=== PATIENT | female | born 1940 | race Caucasian/White ===

== ENCOUNTER 2017-07-21 14:59 | Inpatient (IN) | payer OTHER ==
[~2017-07-21] VITALS: Ht 149.9 cm; Wt 68.6 kg
[2017-07-21 15:51] VITALS: BP 147/75; PULSE 76; TEMP 37.2; O2SAT 96
[2017-07-21] MEDS ORDERED: ACETAMINOPHEN 325 MG TAB PO PRN (16:15)
[2017-07-21] MEDS ORDERED: ONDANSETRON INJ 2 MG/ML 2 ML VIAL IV PRN (16:15)
[2017-07-21 16:17] VITALS: BP 147/75; PULSE 76; TEMP 37.2; O2SAT 96; Ht 149.9 cm; Wt 68.6 kg
[2017-07-21] MEDS ORDERED: PATIENT'S ALLERGY INFO NEEDS ENTERED SCH (16:30)
[2017-07-21] MEDS ORDERED: MULT-506 PO (16:41)
[2017-07-21] MEDS ORDERED: AMOX1TAB42 PO (16:41)
[2017-07-21] MEDS ORDERED: SIMV40TA4 PO (16:41)
[2017-07-21] MEDS ORDERED: LEVO125T4 PO (16:41)
[2017-07-21] MEDS ORDERED: CALC500C70 PO (16:41)
[2017-07-21 16:53] LABS: BASO % 0.3 %; BASO ABS # 0.03 K/uL (0-0.2); COMPLETE YES; EOS % 3.1 %; HEMATOCRIT 41.2 % (37-47); IG% 0.3 %; LYMPH % 9.7 %; LYMPH ABS # 1.07 K/uL (1.2-3.4); MEAN CELL VOLUME 89.2 fL (80-100); MEAN CORPUSCULAR HEMOGLOBIN 30.1 pg (25-34); MEAN CORPUSCULAR HGB CONC 33.7 g/dl (32-36); MEAN PLATELET VOLUME 10.9 fL (7.4-10.4); MONO % 6.5 %; NEUT % 80.1 %; PLATELET COUNT 211 K/uL (130-400); RED BLOOD COUNT 4.62 M/uL (4.2-5.4)
[2017-07-21 17:14] LABS: BUN/CREATININE RATIO 18.4 (10-20); C-REACTIVE PROTEIN 0.66 mg/dl (0-0.29); CALCIUM 9.2 mg/dl (8.5-10.1); CREATININE 0.88 mg/dl (0.60-1.20); POTASSIUM 4.1 mmol/L (3.5-5.1)
[2017-07-21 17:17] LABS: ALB/GLOB RATIO 1.1 (0.9-2)
[2017-07-21 17:53] LABS: PROTHROMBIN TIME (PATIENT) 11.1 SECONDS (9.0-12.0)
[2017-07-21] MEDS: CIPROFLOXACIN / D5W 400 MG in PREMIXED IN D5W 200 ML IV SCH (17:55)
[2017-07-21] MEDS: METRONIDAZOLE / NSS 500 MG in PREMIXED NSS 100 ML IV SCH (17:55)
--- NOTE | 2017-07-21 17:55 | History and Physical ---
History & Physical Date & Time of Service: Jul 21, 2017 ~ 16:15 Chief Complaint: Right Forearm Infection Primary Care Physician: Hafsa Gill PA-C History of Present Illness 76 year old female who presents as a direct admission for right forearm cellulitis from Dr. Mahajan's office. Patient suffered a dog bite 3 days ago. She was seen at [facility] ED and had 3 stitches placed and patient was also started on Augmentin. She started to developed worsening redness and swelling and presented back to the ED yesterday. Stitches were removed however patient signed out AMA before receiving IV antibiotics. Patient reports that since yesterday redness and swelling continues to worsen. She reports a small amount of bloody drainage. Arm is not painful. Sensation is intact to the right hand. She denies fever and chills. No chest pain, palpitations, or shortness of breath. She denies lightheadedness, dizziness, diaphoresis, or syncopal events. No abdominal pain, nausea, vomiting, or diarrhea. She denies any urinary symptoms. At the time of my exam, patient is resting in a chair in no acute distress. Past Medical/Surgical History Medical Problems: (1) HLD (hyperlipidemia) Status: Chronic (2) Hypothyroidism Status: Chronic Family History Diabetes mellitus MOTHER Social History Smoking Status: Never Smoker Alcohol Use: none Immunizations History of Influenza Vaccine: Yes Influenza Vaccine Date: Dec 17, 2015 History of Tetanus Vaccine?: Yes Tetanus Immunization Date: Jul 19, 2017 History of Pneumococcal: Yes Pneumococcal Date: Jul 09, 2016 Allergies Coded Allergies: Erythromycin (Verified Allergy, Unknown, RASH, 07/21/17) Pt states she has not had this medication for >15 years Penicillins (Verified Allergy, Unknown, RASH, 07/21/17) per pt report, pt states she has not had this medication for > 15 years Pseudoephedrine (Verified Allergy, Unknown, RASH, 07/21/17) Pt states that she has not had this med for > 15 years Triprolidine (Verified Allergy, Unknown, RASH, 07/21/17) Pt states that she has not had this med for > 15 years Home Medications Scheduled Amoxicillin & Pot Clavulanate (Amoxicillin/Clavulanate P), 1 TAB PO BID Calcium/Vitamin D (Os-Manuel 500 Plus D), 1 TAB PO BID Levothyroxine Sodium (Levothyroxine Sodium), 1 TAB PO DAILY Multivitamin (Multivitamin), 1 TAB PO DAILY Simvastatin (Zocor), 40 MG PO QPM Review of Systems ROS per HPI, all other systems reviewed and negative Physical Exam Vital Signs Date Time Temp Pulse Resp B/P (MAP) Pulse Ox O2 Delivery O2 Flow Rate FiO2 07/21/17 16:17 37.2 76 18 147/75 96 Room Air 07/21/17 15:51 37.2 76 18 147/75 (99) 96 Room Air General Appearance: no apparent distress Head: normocephalic, atraumatic Eyes: normal inspection, sclerae normal ENT: hearing grossly normal Neck: supple, no JVD Respiratory/Chest: lungs clear, normal breath sounds, no respiratory distress Cardiovascular: regular rate, rhythm, no edema, normal peripheral pulses Abdomen/GI: normal bowel sounds, non tender, soft Extremities/Musculoskelatal: + pertinent finding (~ 3cm well approximated laceration present to the posterior aspect of the right forearm, significant erythema and edema present to the forearm extending up into the elbow, warm to touch) Neurologic/Psych: no motor/sensory deficits, alert, normal mood/affect, oriented x 3 Skin: normal color, warm/dry Diagnostics Laboratory Results Results Past 24 Hours Test 07/21/17 16:35 07/21/17 16:36 07/21/17 16:41 Range/Units Sodium Level 138 136-145 mmol/L Potassium Level 4.1 3.5-5.1 mmol/L Chloride Level 105 98-107 mmol/L Carbon Dioxide Level 27 21-32 mmol/L Anion Gap 6.0 3-11 mmol/L Blood Urea Nitrogen 16 7-18 mg/dl Creatinine 0.88 0.60-1.20 mg/dl Est Creatinine Clear Calc Drug Dose 45.8 ml/min Estimated GFR () 74.0 Estimated GFR (Non- 63.8 BUN/Creatinine Ratio 18.4 10-20 Random Glucose 129 70-99 mg/dl Calcium Level 9.2 8.5-10.1 mg/dl Total Bilirubin 0.5 0.2-1 mg/dl Aspartate Amino Transf (AST/SGOT) 23 15-37 U/L Alanine Aminotransferase (ALT/SGPT) 21 12-78 U/L Alkaline Phosphatase 57 45-117 U/L C-Reactive Protein 0.66 0-0.29 mg/dl Total Protein 8.1 6.4-8.2 gm/dl Albumin 4.2 3.4-5.0 gm/dl Globulin 3.9 2.5-4.0 gm/dl Albumin/Globulin Ratio 1.1 0.9-2 White Blood Count 11.00 4.8-10.8 K/uL Red Blood Count 4.62 4.2-5.4 M/uL Hemoglobin 13.9 12.0-16.0 g/dL Hematocrit 41.2 37-47 % Mean Corpuscular Volume 89.2 80-100 fL Mean Corpuscular Hemoglobin 30.1 25-34 pg Mean Corpuscular Hemoglobin Concent 33.7 32-36 g/dl Platelet Count 211 130-400 K/uL Mean Platelet Volume 10.9 7.4-10.4 fL Neutrophils (%) (Auto) 80.1 % Lymphocytes (%) (Auto) 9.7 % Monocytes (%) (Auto) 6.5 % Eosinophils (%) (Auto) 3.1 % Basophils (%) (Auto) 0.3 % Neutrophils # (Auto) 8.81 1.4-6.5 K/uL Lymphocytes # (Auto) 1.07 1.2-3.4 K/uL Monocytes # (Auto) 0.72 0.11-0.59 K/uL Eosinophils # (Auto) 0.34 0-0.5 K/uL Basophils # (Auto) 0.03 0-0.2 K/uL RDW Standard Deviation 41.8 36.4-46.3 fL RDW Coefficient of Variation 12.8 11.5-14.5 % Immature Granulocyte % (Auto) 0.3 % Immature Granulocyte # (Auto) 0.03 0.00-0.02 K/uL Erythrocyte Sedimentation Rate 33 0-21 mm/hr Lactic Acid Level 1.1 0.4-2.0 mmol/L Microbiology Results 07/21/17 Blood Culture, Received Pending 07/21/17 Blood Culture, Received Pending 07/21/17 Gram Stain, Nia Batch Pending 07/21/17 Wound Culture, Nia Batch Pending Impression Assessment and Plan RIGHT FOREARM CELLULITIS - admit to med/surg - patient referred as a direct admission from Dr. Mahajan's office for worsening cellulitis of the right forearm despite taking Augmentin after she suffered a dog bite on 07/19 - patient did have sutures in place however they were removed during a repeat ER visit yesterday - wound currently well approximated - no signs of sepsis - wound and blood cultures - due to patient's allergy profile, will place on IV Cipro and Flagyl; no need to cover for MRSA at this time - check forearm XR - consult Dr. Mahajan HYPOTHYROIDISM - continue levothyroxine HLD - continue statin DVT PROPHYLAXIS - SQ Heparin DISPO - In my clinical judgment this beneficiary meets acute admission criteria, established by [facility], that includes being hospitalized through two midnights. ADDENDUM: I have seen and examined the patient and agree with the assessment and plan as stated. Low MRSA risk, so opted for more gram negative and anaerobe coverage in this PCN-allergic patient. DO Donald Level of Care Med/Surg Advanced Directives Existing Living Will: No Existing Power of Chicken Stuffer: No Resuscitation Status FULL RESUSCITATION VTE Prophylaxis VTE Risk Assessment Done? Y/N: Yes Risk Level: Moderate Given or contraindicated: Enoxaparin (Lovenox)SQ Social Service Consult None Apply
--- NOTE | 2017-07-21 19:21 | DIAGNOSTIC IMAGING REPORT ---
RIGHT FOREARM 2 VIEWS ROUTINE CLINICAL HISTORY: cellulitis Right infection COMPARISON: None. DISCUSSION: The bones and joint spaces appear intact. There is no evidence of fracture, dislocation or bony disease. Generalized nonspecific soft tissue edema. Cortical margins are intact. IMPRESSION: Generalized soft tissue edema. No acute bony abnormality. The above report was generated using voice recognition software. It may contain grammatical, syntax or spelling errors. Electronically signed by: Adan Covarrubias M.D. 07/21/2017 7:20 PM Dictated Date/Time: 07/21/2017 7:19 PM
[2017-07-21] MEDS ORDERED: CIPROFLOXACIN / D5W 400 MG in PREMIXED IN D5W 200 ML IV SCH (20:00)
[2017-07-21] MEDS: SIMVASTATIN 40 MG TAB PO SCH (21:27)
[2017-07-21] MEDS ORDERED: HEPARIN SOD 5000 UNIT/0.5 ML CARP SQ SCH (22:00)
[2017-07-22] VITALS: BP 149/71; PULSE 71; TEMP 36.8; O2SAT 97
[2017-07-22] MEDS: METRONIDAZOLE / NSS 500 MG in PREMIXED NSS 100 ML IV SCH ×3 (01:50→18:32)
[2017-07-22 05:51] LABS: HEMATOCRIT 41.7 % (37-47); MEAN CELL VOLUME 91.4 fL (80-100); MEAN CORPUSCULAR HEMOGLOBIN 29.2 pg (25-34); MEAN CORPUSCULAR HGB CONC 31.9 g/dl (32-36); MEAN PLATELET VOLUME 10.8 fL (7.4-10.4); PLATELET COUNT 213 K/uL (130-400); RED BLOOD COUNT 4.56 M/uL (4.2-5.4); WHITE BLOOD COUNT 8.38 K/uL (4.8-10.8)
[2017-07-22] MEDS: CIPROFLOXACIN / D5W 400 MG in PREMIXED IN D5W 200 ML IV SCH ×2 (05:55→18:32)
[2017-07-22] MEDS: LEVOTHYROXINE 125 MCG TAB PO SCH (05:55)
[2017-07-22 06:20] LABS: BUN/CREATININE RATIO 16.6 (10-20); CALCIUM 8.3 mg/dl (8.5-10.1); CREATININE 0.82 mg/dl (0.60-1.20); POTASSIUM 3.9 mmol/L (3.5-5.1)
[2017-07-22 06:21] LABS: C-REACTIVE PROTEIN 0.76 mg/dl (0-0.29)
[2017-07-22 06:53] VITALS: BP 137/80; PULSE 78; TEMP 37; O2SAT 96
[2017-07-22] MEDS: ENOXAPARIN 40 MG/0.4 ML SYR SQ SCH (09:00)
[2017-07-22] MEDS: MULTIVITAMIN TAB PO SCH (09:09)
[2017-07-22] MEDS ORDERED: INFLUENZA VACCINE HIGH DOSE 65+ 0.5 ML SYR IM. ONE (10:15)
[2017-07-22] MEDS ORDERED: INFLUENZA ADMINISTRATION CHARGE ONE (10:15)
[2017-07-22 15:00] VITALS: BP 130/78; PULSE 79; TEMP 37.3; O2SAT 94
--- NOTE | 2017-07-22 19:16 | Progress Note ---
Internal Med Progress Note Date of Service: Jul 22, 2017. Provider Documentation: SUBJECTIVE: no fever or chills swelling on left arm improved offers no complain of pain OBJECTIVE: Vital Signs-as noted below Exam: General-no sign of distress Eyes-sclera non icteric ENT-NAd Neck-no JVD Lungs-CTA Heart-regular S1/S2 Abdomen-soft, non tender Extremities- Neuro-AAO x3, Lab data as noted below. ASSESSMENT & PLAN: RIGHT FOREARM CELLULITIS - due to infected to Dog bite - patient referred as a direct admission from Dr. Mahajan's office for worsening cellulitis of the right forearm despite taking Augmentin after she suffered a dog bite on 07/19 - sutures removed during a repeat ER visit in [facility] - wound remains well approximated - no signs of sepsis - wound gram stain -no organism seen and blood cultures -pending -on IV Cipro and Flagyl; no need to cover for MRSA at this time - forearm XRay shows -soft tissue swelling , no acute bony abnormality - consulted orthopedics Dr. Mahajan HYPOTHYROIDISM - continue levothyroxine HLD - continue statin DVT PROPHYLAXIS - SQ Heparin DISPOSITION discharge home when medically stable Vital Signs: Date Time Temp Pulse Resp B/P (MAP) Pulse Ox O2 Delivery O2 Flow Rate FiO2 07/23/17 00:45 Room Air 07/23/17 00:05 36.8 79 16 144/76 (98) 94 Room Air 07/22/17 17:15 Room Air 07/22/17 15:00 37.3 79 18 130/78 (95) 94 Room Air 07/22/17 09:00 Room Air Lab Results: Results Past 24 Hours Test 07/23/17 07:02 Range/Units
[2017-07-22] MEDS: SIMVASTATIN 40 MG TAB PO SCH (20:49)
--- NOTE | 2017-07-22 21:48 | ORTHOPEDIC CONSULTATION REPORT ---
DATE OF CONSULTATION: 07/22/2017 REASON FOR CONSULT: Cellulitis, right forearm status post dog bite. HISTORY OF PRESENT ILLNESS: The patient is a 76-year-old white female who was bitten by their dog approximately 3-4 days ago, prior to admission. She was seen at [facility] ED and had 3 stitches placed and the patient was started on Augmentin, apparently it began to worsen and she presented back to the Emergency Room. Stitches were removed; however, the patient signed out AMA before receiving IV antibiotics. She eventually ended up in Dr. Mahajan's office and at that time he felt that she needed admitted for IV antibiotics, but did not feel that this was a surgical case. He discussed the case with [facility] service and the patient was brought over to the hospital and was admitted under their service for IV antibiotics. Today, she is feeling well and has no complaints and states that she feels that the right arm is getting better. Family is present and they also agree that the arm has been looking better since she was admitted and started her on IV antibiotics. She currently has no complaints at this time. PAST MEDICAL HISTORY: Hyperlipidemia, hypothyroidism. FAMILY HISTORY: Diabetes mellitus. SOCIAL HISTORY: The patient is a nonsmoker, does not use alcohol and is . MEDICATIONS: She is currently on Augmentin 1 tab p.o. b.i.d. Other medications - Os-Manuel 500 one tab p.o. b.i.d., levothyroxine 1 tab p.o. daily, multivitamin 1 tab p.o. daily and simvastatin 40 mg p.o. q.p.m. ALLERGIES: ERYTHROMYCIN, PENICILLINS, PSEUDOEPHEDRINE AND TRIPROLIDINE. REVIEW OF SYSTEMS: As per admitting history and physical. PHYSICAL EXAMINATION: VITAL SIGNS: Today - she is afebrile, pulse 79, respirations 18, BP 130/78, pulse ox 94% on room air. EXTREMITIES: The patient's right upper extremity, the Pedro wrap and dressing are noted on the forearm, which was removed. She has a large area that was started with a pen from at least the mid forearm up to the posterior elbow. She has mild dusky erythema over the portion of this area; however, over the dorsal aspect of the forearm, the erythema is lessening. She states that the swelling has gone way down at this point in time and her skin is wrinkling quite well due to less edema. Just palpating the areas of erythema, she is nontender and I can appreciate no fluctuance in any of the areas within the pen leyva. She does have several wounds on the forearm that are scabbed over, but are not draining. She has good range of motion of the right elbow, wrist and hand as well as the right shoulder without discomfort. There are no gross motor or sensory deficits seen at this time. ASSESSMENT: Cellulitis secondary to a dog bite. PLAN: The patient will be continued on IV antibiotics as per medicine service. She is currently a nonoperative candidate and can follow up with Dr. Mahajan in the office as needed. Current culture swab that was done on wound showed no organisms and culture preliminary is no growth to date. Thank you for this consult. ABIOLA
[2017-07-23 00:05] VITALS: BP 144/76; PULSE 79; TEMP 36.8; O2SAT 94
--- NOTE | 2017-07-23 00:38 | ORTHOPEDIC CONSULTATION ---
DATE OF CONSULTATION: 07/22/2017 HISTORY OF PRESENT ILLNESS: This is a 76-year-old [id number] female who is seen at the request of Dr. Ellie Bennett and YULIANA Santiago, for right forearm cellulitis status post dog bite. This 76-year-old female was seen in direct admission after the patient had been initially seen and treated at [facility] Emergency Department. She had been attacked by a dog and had the wound evaluated at the Emergency Department in [place], had it irrigated and then loosely closed with sutures. She was placed on oral Augmentin. She developed worsening redness, pain, and swelling and was seen at the Emergency Department in followup. Her sutures were removed and noted some scant amount of bloody drainage. She left the Emergency Department AMA prior to receiving IV antibiotics and then presented back to the hospital as a direct admission after continued arm pain and swelling. The patient has been on IV antibiotics the last day and has had marked improvement in her symptoms with decreased redness, swelling and pain. She denies any fevers, chills, nausea, vomiting or diarrhea. PAST MEDICAL HISTORY: Hyperlipidemia and hypothyroidism. PAST SURGICAL HISTORY: Noncontributory. ALLERGIES: ERYTHROMYCIN RASH, PENICILLINS RASH, PSEUDOEPHEDRINE RASH, AND TRIPROLIDINE RASH. MEDICATIONS: Augmentin 1 tab p.o. b.i.d. for 3 days prior to admission, Os-Manuel 500 plus D 1 tab p.o. b.i.d., levothyroxine sodium 1 tab p.o. daily, multivitamin 1 tab p.o. daily, Zocor 40 mg p.o. q.p.m. SOCIAL HISTORY: Denies tobacco, alcohol or drug use. She is . She lives with her spouse and she is retired. PHYSICAL EXAMINATION: GENERAL: This is a 76-year-old female sitting upright at the bedside of her hospital bed with her present at the bedside. She is alert and oriented x3. Speech is clear and fluent. Affect is appropriate. She relates that she would like to be discharged home as she is feeling much better. EXTREMITIES: Examination of the right upper extremity demonstrates a forearm wrap with no evidence of wound discharge or drainage. Some streaking proximal to the dressing is noted to the level of the medial elbow and extending to the posterior olecranon region without any proximal extension. The line of demarcation is noted from previous pen isabella on the patient's arm demonstrating a receding line of erythema compared to the prior level of erythema. Active and passive range of motion of the right upper extremity matches the left upper extremity unaffected side with approximately 125 degrees of flexion, full extension, 50 degrees of supination and 50 degrees of pronation on the right forearm. Mild tenderness to palpation in the superficial skin adjacent to the posterior elbow and the medial elbow region. Full range of motion of the fingers and wrists, bilateral upper extremities. Radial pulse 2/4. Radial, ulnar and median nerve sensory and motor function are intact. IMPRESSION: 1. Right forearm cellulitis, improving after intravenous antibiotics. 2. Right forearm dog bite with a superficial laceration. RECOMMENDATIONS: Continue IV antibiotics and then discharge the patient home on a course of p.o. antibiotics for approximately 10-14 days based upon clinical course. We will be glad to see this patient in followup in the clinic as needed. Thank you for the opportunity to consult in the care of this patient.
[2017-07-23] MEDS: METRONIDAZOLE / NSS 500 MG in PREMIXED NSS 100 ML IV SCH ×2 (02:08→09:26)
[2017-07-23] MEDS: LEVOTHYROXINE 125 MCG TAB PO SCH (06:04)
[2017-07-23] MEDS: CIPROFLOXACIN / D5W 400 MG in PREMIXED IN D5W 200 ML IV SCH (06:04)
[2017-07-23 07:41] VITALS: BP 126/70; PULSE 76; TEMP 37; O2SAT 95
[2017-07-23 07:43] VITALS: BP 126/70; PULSE 76; TEMP 37; O2SAT 95
[2017-07-23] MEDS: ENOXAPARIN 40 MG/0.4 ML SYR SQ SCH (09:00)
[2017-07-23] MEDS: MULTIVITAMIN TAB PO SCH (09:25)
[2017-07-23 11:20] VITALS: BP 130/66; PULSE 74; TEMP 37.1; O2SAT 95
[2017-07-23] MEDS ORDERED: DXY100 PO (13:48)
--- NOTE | 2017-07-23 13:51 | Discharge Instructions ---
Discharge Instructions Date of Service Jul 23, 2017. Admission Reason for Admission: Cellulitis Of Right Forearm Discharge Discharge Diagnosis / Problem: CELLULITIS OF RT FOREARM /DOG BITE WOUND Discharge Goals Goal(s): Decrease discomfort, Improve disease control, Diagnostic testing, Therapeutic intervention Activity Recommendations Activity Limitations: resume your previous activity . Instructions / Follow-Up Instructions / Follow-Up HOSPITAL FOLLOW UP 07/27/2017 3:10 PM Hafsa Gill PA-C [facility] COMPLETE ANTIBIOTICS FOR 10 DAYS , PLEASE NOTIFY YOUR FAMILY PHYSICIAN IF YOU NOTICE INCREASED SWELLING , REDNESS, PAIN AROUND THE WOUND OR YOU DEVELOP FEVER ORTHOPEDICS FOLLOW UP WITH DR DA SILVA IN A WEEK , PLEASE CALL OFFICE FOR APPOINTMENT Current Hospital Diet Patient's current hospital diet: AHA Diet (Heart Healthy) Discharge Diet Recommended Diet: AHA Diet (Heart Healthy) Pending Studies Studies pending at discharge: no Medical Emergencies . Who to Call and When: Medical Emergencies: If at any time you feel your situation is an emergency, please call 911 immediately. . Non-Emergent Contact Non-Emergency issues call your: Primary Care Provider . . "Provider Documentation" section prepared by Gloria Pierson. . VTE Core Measure Inpt VTE Proph given/why not?: Enoxaparin (Lovenox)SQ
[2017-07-23] MEDS ORDERED: DOXYCYCLINE HYCLATE 100 MG CAP PO ONE (14:00)
[2017-07-23 14:04] VITALS: BP 130/66; PULSE 74; TEMP 37.1; O2SAT 95
--- NOTE | 2017-07-23 14:40 | Progress Note ---
Internal Med Progress Note Date of Service: Jul 23, 2017. Provider Documentation: SUBJECTIVE: left arm swelling and erythema has resolved , no pain or discomfort no fever transitioned to oral antibiotic today stable to be discharged home OBJECTIVE: Vital Signs-as noted below Exam: General-no sign of distress Eyes-sclera non icteric ENT-NAd Neck-no JVD Lungs-CTA Heart-regular S1/S2 Abdomen-soft, non tender Extremities-left arm has multiple wound with scabs largest 2-3 cm , no drainage , no surrounding erythema or swelling ,non tender, no increased warmth noted Neuro-AAO x3, no focal deficit Lab data as noted below. ASSESSMENT & PLAN: RIGHT FOREARM CELLULITIS - due to infected to Dog bite - suffered a dog bite on 07/19 - patient referred as a direct admission from Dr. Mahajan's office for worsening cellulitis of the right forearm despite taking Augmentin - sutures removed during a repeat ER visit in [facility] - wound remains well approximated - no signs of sepsis - wound gram stain -no organism seen and blood cultures -no growth -on IV Cipro and Flagyl; no need to cover for MRSA at this time - forearm XRay shows -soft tissue swelling , no acute bony abnormality - consulted orthopedics -appreciate input no surgical intervention needed wound healing well with Abx changed to PO Doxycycline , complete 10 days course stable to be discharged home Orthopedics follow up with Dr Fox in a week HYPOTHYROIDISM - continue levothyroxine HLD - continue statin DVT PROPHYLAXIS - SQ Heparin DISPOSITION discharge home today Vital Signs: Date Time Temp Pulse Resp B/P (MAP) Pulse Ox O2 Delivery O2 Flow Rate FiO2 07/23/17 14:04 37.1 74 16 95 Room Air 07/23/17 11:20 37.1 74 16 130/66 (87) 95 Room Air 07/23/17 07:45 Room Air 07/23/17 07:43 37.0 76 20 126/70 (88) 95 Room Air 07/23/17 07:41 37.0 76 20 126/70 (88) 95 Room Air 07/23/17 00:45 Room Air 07/23/17 00:05 36.8 79 16 144/76 (98) 94 Room Air 07/22/17 17:15 Room Air Lab Results: Results Past 24 Hours Test 07/23/17 07:02 Range/Units Erythrocyte Sedimentation Rate 37 0-21 mm/hr C-Reactive Protein 0.67 0-0.29 mg/dl
--- NOTE | 2017-07-23 15:55 | Discharge Summary ---
Discharge Summary Date of Service Jul 23, 2017. Discharge Summary Admission Date: Jul 21, 2017 at 15:36 Discharge Date: Jul 23, 2017 Discharge Disposition: Home with services Principal Diagnosis: CELLULITIS OF RT FOREARM /DOG BITE WOUND Procedures: XRAY OF LEFT XRAY : soft tissue swelling , no acute bony abnormality Consultations: ORTHOPEDICS Medication Reconciliation New Medications: Doxycycline Hyclate (Doxycycline Hyclate) 100 Mg Cap 1 TAB PO BID for 10 Days, #20 TABS Continued Medications: Calcium/Vitamin D (Os-Manuel 500 Plus D) Tab 1 TAB PO BID, TAB Levothyroxine Sodium (Levothyroxine Sodium) 125 Mcg Tab 1 TAB PO DAILY for 30 Days, #30 TAB 5 Refills Multivitamin (Multivitamin) Tab 1 TAB PO DAILY, TAB Simvastatin (Zocor) 40 Mg Tab 40 MG PO QPM, TAB Discontinued Medications: Amoxicillin & Pot Clavulanate (Amoxicillin/Clavulanate P) 1 Tab Tab 1 TAB PO BID for 7 Days, #14 TAB Referrals At Discharge Follow up Referrals: Orthopedics Referral - Within 1-2 Weeks with Omid Fox D.O. Admission Information HPI (per Admitting provider): 76 year old female who presents as a direct admission for right forearm cellulitis from Dr. Mahajan's office. Patient suffered a dog bite 3 days ago. She was seen at [facility] ED and had 3 stitches placed and patient was also started on Augmentin. She started to developed worsening redness and swelling and presented back to the ED yesterday. Stitches were removed however patient signed out AMA before receiving IV antibiotics. Patient reports that since yesterday redness and swelling continues to worsen. She reports a small amount of bloody drainage. Arm is not painful. Sensation is intact to the right hand. She denies fever and chills. No chest pain, palpitations, or shortness of breath. She denies lightheadedness, dizziness, diaphoresis, or syncopal events. No abdominal pain, nausea, vomiting, or diarrhea. She denies any urinary symptoms. At the time of my exam, patient is resting in a chair in no acute distress. Physical Exam (per Admitting): General Appearance: no apparent distress Head: normocephalic, atraumatic Eyes: normal inspection, sclerae normal ENT: hearing grossly normal Neck: supple, no JVD Respiratory/Chest: lungs clear, normal breath sounds, no respiratory distress Cardiovascular: regular rate, rhythm, no edema, normal peripheral pulses Abdomen/GI: normal bowel sounds, non tender, soft Extremities/Musculoskelatal: + pertinent finding (~ 3cm well approximated laceration present to the posterior aspect of the right forearm, significant erythema and edema present to the forearm extending up into the elbow, warm to touch) Neurologic/Psych: no motor/sensory deficits, alert, normal mood/affect, oriented x 3 Skin: normal color, warm/dry Hospital Course RIGHT FOREARM CELLULITIS - due to infected to Dog bite - suffered a dog bite on 07/19 - patient referred as a direct admission from Dr. Mahajan's office for worsening cellulitis of the right forearm despite taking Augmentin - sutures removed during a repeat ER visit in [facility] - wound remains well approximated - no signs of sepsis - wound gram stain -no organism seen and blood cultures -no growth -on IV Cipro and Flagyl; no need to cover for MRSA at this time - forearm XRay shows -soft tissue swelling , no acute bony abnormality - consulted orthopedics -appreciate input no surgical intervention needed wound healing well with Abx changed to PO Doxycycline , complete 10 days course stable to be discharged home Orthopedics follow up with Dr Fox in a week HYPOTHYROIDISM - continue levothyroxine HLD - continue statin DVT PROPHYLAXIS - SQ Heparin DISPOSITION discharge home today Total time spent on discharge = 35 mins This includes examination of the patient, discharge planning, medication reconciliation, and communication with other providers. Discharge Instructions Discharge Instructions Date of Service Jul 23, 2017. Admission Reason for Admission: Cellulitis Of Right Forearm Discharge Discharge Diagnosis / Problem: CELLULITIS OF RT FOREARM /DOG BITE WOUND Discharge Goals Goal(s): Decrease discomfort, Improve disease control, Diagnostic testing, Therapeutic intervention Activity Recommendations Activity Limitations: resume your previous activity . Instructions / Follow-Up Instructions / Follow-Up HOSPITAL FOLLOW UP 07/27/2017 3:10 PM Hafsa Gill PA-C [facility] COMPLETE ANTIBIOTICS FOR 10 DAYS , PLEASE NOTIFY YOUR FAMILY PHYSICIAN IF YOU NOTICE INCREASED SWELLING , REDNESS, PAIN AROUND THE WOUND OR YOU DEVELOP FEVER ORTHOPEDICS FOLLOW UP WITH DR FOX IN A WEEK , PLEASE CALL OFFICE FOR APPOINTMENT Current Hospital Diet Patient's current hospital diet: AHA Diet (Heart Healthy) Discharge Diet Recommended Diet: AHA Diet (Heart Healthy) Pending Studies Studies pending at discharge: no Medical Emergencies . Who to Call and When: Medical Emergencies: If at any time you feel your situation is an emergency, please call 911 immediately. . Non-Emergent Contact Non-Emergency issues call your: Primary Care Provider . . "Provider Documentation" section prepared by Gloria Pierson. . VTE Core Measure Inpt VTE Proph given/why not?: Enoxaparin (Lovenox)SQ Additional Copies To Omid Fox D.O.
== END 2017-07-23 14:57 | disposition home health service (06) | DRG 603 ==
LOC: C.MSW 15:36
PROVIDERS: ADMIT Hospitalist; ATTEND Hospitalist
DX: L03.113 Cellulitis of right upper limb (principal); S51.851S Open bite of right forearm, sequela; E03.9 Hypothyroidism, unspecified; E78.5 Hyperlipidemia, unspecified; Z51.81 Encounter for therapeutic drug level monitoring; Z79.899 Other long term (current) drug therapy; Z83.3 Family history of diabetes mellitus; W54.0XXS Bitten by dog, sequela

== ENCOUNTER → 2017-07-21 | Outpatient (CLI) | payer OTHER ==
[~2017-07-21] MED LIST: AMOX1TAB42 PO; CALC500C70 PO; DXY100 PO; LEVO125T4 PO; MULT-506 PO; SIMV40TA4 PO
--- NOTE | 2017-07-29 10:32 | CODING QUERY NO DIAGNOSIS ---
: 1940 TREATMENT RENDERED WITHOUT A DIAGNOSIS To promote full compliance with coding requirements relating to patient care, physician participation is requested in all cases of annual giving director uncertainty. Please assist us with providing a diagnosis/symptom for the test(s) below: A diagnosis/symptom was not documented on your Order. A valid diagnosis/symptom is required to bill all insurances. Please remember that we are unable to code a diagnosis of rule out, probable, possible, questionable, or suspected. Tests that require a diagnosis: DOS: 07/21/17 * ANAEROBIC/AEROBIC AND SENSITIVITY DIAGNOSIS: Provider Signature: Date: Thank you Shamika Alejandre Health Information Management Once completed, please kindly fax back to [phone] For questions please call [phone]
--- NOTE | 2017-08-07 11:15 | CODING QUERY NO DIAGNOSIS ---
: 1940 TREATMENT RENDERED WITHOUT A DIAGNOSIS To promote full compliance with coding requirements relating to patient care, physician participation is requested in all cases of plant protection guard uncertainty. Please assist us with providing a diagnosis/symptom for the test(s) below: A diagnosis/symptom was not documented on your Order. A valid diagnosis/symptom is required to bill all insurances. Please remember that we are unable to code a diagnosis of rule out, probable, possible, questionable, or suspected. Tests that require a diagnosis: DOS:07/21/17 ANAEROBIC/AEROBIC AND SENSITIVITY DIAGNOSIS: Provider Signature: Date: Thank you Shamika Alejandre Health Information Management Once completed, please kindly fax back to [phone] For questions please call [phone]
== END | disposition home or self-care (01) ==
LOC: C.LABSPEC 17:33
PROVIDERS: ATTEND Physician Assistant
DX: T14.8 Other injury of unspecified body region (principal); W54.0XXA Bitten by dog, initial encounter